=== PATIENT | male | born 1955 | race Caucasian/White ===

== ENCOUNTER → 2016-10-08 | Day surgery (SDC) | payer MEDICARE, OTHER ==
[~2016-10-08] MED LIST: CLOTRIMAZOLE-BE30 M1 TOP; DIASTAT10 MG; DIAZEPAM10 MG PO; FLONASE 0.05% N16 G1; LACTULOSE PO; LACTULOSE10 GM/15 M PO; LANTUS100 U/ML SUBQ; LASIX20 MG PO; LIDOCAINE-HC 3-11 GM TOP; LIDODERM1 EACH TOP; LIDODERM30 EA TOP; LINZESS145 MCG PO; LOTRISONE LOTIO30 ML TOP; MIRALAX17 GM PO; NADOLOL20 MG PO; NATURAL VITA200 UNI1 PO; OXYCODONE15 MG PO; OXYCONTIN20 MG PO; PANTOPRAZOLE SO40 MG PO; PROCTOFOAM-HC10 G1 PR; PROTONIX PO; SPIRONOLACTONE50 MG PO; TRIDESILON 0.0515 G2 EXT; VALIUM10 M1 PO; VALIUM10 MG PO; VITAMIN B 6 PO; VITAMIN B650 MG PO; VITAMIN E200 UNI1 PO; XIFAXAN550 MG PO
--- NOTE | ~2016-10-08 | OR ---
Unit #: [id number] #: [id number] Patient: SUDHAKAR BRENNAN [id number] [address] [address] [id number] O MR#: [id number] NAME: SUDHAKAR BRENNAN ROOM: Date of Procedure: 10/08/2016 Admission Date: 10/08/2016 Surgeon: Chris Awad M.D. : 1955 Attending Physician: Chris Awad M.D. Primary Care Physician: Zana Garcia M.D. OPERATIVE REPORT PREOPERATIVE DIAGNOSES The patient has come for elective upper gastrointestinal endoscopy as a history of ALVAREZ with portal hypertension and documented esophageal varices. PROCEDURE PERFORMED Upper gastrointestinal endoscopy. POSTOPERATIVE DIAGNOSES 1. The patient had grade 2 esophageal varices in the mid and distal esophagus. These were straight varices with no stigmata of recent bleed. 2. Changes of portal hypertensive gastropathy involving the fundic mucosa as well as multiple antral ectasias again due to portal hypertensive changes. The examination is otherwise normal up to third part of duodenum. RECOMMENDATIONS The patient will follow up in the office in 3 months' time. No specific intervention is indicated. He is continue the same medications before. SEDATION USED MAC. DESCRIPTION OF PROCEDURE Following detailed explanation of potential risks and complications of an upper endoscopy, namely perforation, bleeding, and complications related to sedation, the patient was brought to GI lab, laid in the left lateral decubitus position. Lubricated tip of the Olympus video upper endoscope was passed through the bite block into the proximal esophagus under direct vision. The entire esophageal mucosa was examined and the patient was noted to have grade 2 esophageal varices in mid and distal esophagus. These were straight varices without any stigmata of recent bleed. The scope was then advanced into the gastric cavity and the latter was insufflated. Mucosa of the fundus, body, and antrum were examined and changes of portal hypertensive gastropathy were noted in the fundic mucosa. In addition, there were multiple ectasias in the antrum again as a result of portal hypertensive changes. Pylorus was intubated with visualization of the normal duodenal bulb and second and third part of duodenum. Upon withdrawal and retroflexion, incisura, cardia, and greater curve examined and no additional findings noted. The scope was withdrawn from the distal esophagus. The entire esophageal mucosa was examined all the way up to pharynx, no additional findings noted. The patient tolerated the procedure without any postprocedure complications. Unit #: [id number] #: [id number] Patient: MIKASUDHAKAR E Dictated by.Keo Timmons/stacy TD: 10/08/2016 10:51 JOB #: [id number] OPERATIVE REPORT Page 1 of 1 X Chris Awad MD PROCEDURE OPERATIVE NOTE
== END | disposition home or self-care (01) ==
LOC: COPS 07:58
DX: I85.00 Esophageal varices without bleeding (principal); K76.6 Portal hypertension; K31.89 Other diseases of stomach and duodenum; J44.9 Chronic obstructive pulmonary disease, unspecified; N40.0 Benign prostatic hyperplasia without lower urinary tract symptoms; E11.9 Type 2 diabetes mellitus without complications; D69.6 Thrombocytopenia, unspecified; Z88.2 Allergy status to sulfonamides; Z79.899 Other long term (current) drug therapy; Z79.4 Long term (current) use of insulin; Z98.890 Other specified postprocedural states
CPT/HCPCS: 82947